=== PATIENT | male | born 2000 | race Caucasian/White ===

== ENCOUNTER 2021-01-25 19:30 | Emergency (ER) | payer MEDICAID ==
[~2021-01-25] VITALS: Ht 180.3 cm; Wt 87.7 kg
[2021-01-25] MEDS ORDERED: garlic PO (19:40)
[2021-01-25] MEDS ORDERED: MULT1TAB8 PO (19:40)
[2021-01-25] MEDS ORDERED: ISOVUE-370 76% 100ML VIAL As Ordered ONE (21:21)
[2021-01-26 00:45] VITALS: BP 119/72
--- NOTE | 2021-01-27 08:06 | ECGEPIP ---
[facility] - ED Test Date: 2021-01-25 Pat Name: KEITH WAYNE Department: Room: - Gender: Male [employer] Supervisor: DANNIE : 2000 Requested By: TARAH Wall Order Number: [id number] Reading MD: Johnna Gordon Measurements Intervals [place] Rate: 95 P: 44 ME: 144 QRS: 30 QRSD: 108 T: 37 QT: 354 QTc: 444 Interpretive Statements Normal sinus rhythm Incomplete right bundle branch block No prior Electronically Signed on 01-27-2021 8:06:36 EDT by Johnna Gordon
--- NOTE | 2021-01-28 08:43 | REP ---
INDICATION: intermittent back pain, hx of bicusp aortic valve, TAA. Repeat dictation. Preliminary report is provided at the time of the exam by rodri GEORGE. COMPARISON: None. TECHNIQUE: Contrast dose: ML of Isovue [address] technique: Helical scanning is acquired and overlapping 1.5 mm and contiguous 3 mm axial images are reformatted. In addition, maximum intensity projection and multiplanar re-formation images are generated in sagittal and coronal imaging projections. FINDINGS: There is good opacification of the mediastinal vasculature. There is aneurysmal dilation of the ascending thoracic aorta. The ascending aorta measures 5.0 cm in greatest anteroposterior dimension at the level of the right main pulmonary artery. This patient is known bicuspid aortic valve by history. The ascending aorta is to the level of the proximal arch. It measures 4.1 cm just proximal to the or origin of the innominate artery. The craniocaudal dimension of the aorta just distal to the left subclavian artery origin is 2.3 cm. Descending aorta measures 1.7 x 1.9 cm. There is no evidence of aortic dissection or Holli aneurysmal hemorrhage or fibrosis. No mural thickening is seen. There is no evidence of filling defect in the pulmonary arterial tree. The lung condon are clear. No pleural or pericardial effusion is seen. No hilar or mediastinal mass or adenopathy is observed. Normal adrenal glands are seen. The right renal artery is duplicated. Visualized upper abdominal structures are otherwise unremarkable. IMPRESSION: Ascending thoracic aortic aneurysm as above, 5.0 cm in greatest anteroposterior dimension. Known bicuspid aortic valve by history.. <Electronically signed by Ruben Meza > 01/28/21 [id number]
--- NOTE | 2021-01-28 08:48 | REP ---
INDICATION: intermittent back pain, hx of bicusp aortic valve, TAA. Repeat dictation. Preliminary report is provided at the time of the exam by rodri GEORGE. COMPARISON: None. TECHNIQUE: Helical scanning is acquired following the intravenous injection of 100 mL of Isovue 370. 3 mm axial images re-formatted. Coronal and sagittal MPR images are generated. FINDINGS: The descending thoracic aorta is normal in caliber and unremarkable. The celiac and superior mesenteric and inferior mesenteric artery origins are clear and unremarkable. The infrarenal abdominal aorta is normal in caliber. There is an accessory lower pole right renal artery. Both right renal arteries and the left renal artery are normal in caliber without evidence of stenosis. Common iliac and external iliac and internal iliac arteries are widely patent. 1 there is evidence of mild fatty infiltration of the liver. Liver and spleen are normal in size homogeneous in texture. Normal adrenal glands are seen. No abnormality is noted in the gallbladder or pancreas. No retroperitoneal mass or adenopathy is seen. A normal appendix is noted in the right lower quadrant. Urinary bladder, seminal vesicles, and prostate are unremarkable. No abdominal wall defect is seen. Small and large bowel loops are normal in the abdomen and pelvis. IMPRESSION: Mild fatty infiltration of the liver. Otherwise negative. Accessory lower pole right renal artery. No other vascular abnormality. <Electronically signed by Ruben Meza > 01/28/21 [id number]
--- NOTE | 2021-01-28 13:47 | ED PDOC ---
Post-Departure Follow-Up [facility] [place] and dr renteria faxed formal report of cta chest for fu Brina Mcdonald MD Jan 28, 2021 13:47
== END 2021-01-26 01:09 | disposition home or self-care (01) ==
LOC: M ED 19:30
DX: I71.2 Thoracic aortic aneurysm, without rupture (principal); I45.19 Other right bundle-branch block; Z87.891 Personal history of nicotine dependence
CPT/HCPCS: 36415; 71275; 74174; 80047; 93005; 99285; Q9967

== ENCOUNTER → 2021-01-28 | Outpatient (CLI) | payer MEDICAID ==
[~2021-01-28] MED LIST: MULT1TAB8 PO; garlic PO
--- NOTE | 2021-01-29 10:29 | ECHO ---
DATE OF PROCEDURE: 01/28/2021 Age: 20 Gender: Male Height: 177 cm Weight: 87 kg REFERRING PHYSICIAN: Grace Luis. DIAGNOSIS: Thoracic aortic aneurysm. INDICATION: MEASUREMENTS: IVS 1.2 cm LV 4.8 cm LVPW 1.1 cm LA 3.2 cm Aortic root 2.7 cm Ascending aorta 4.8 cm Aortic arch 4.0 cm RV 2.7 cm IVC 1.0 cm Mitral E wave velocity 154 A wave 110 E prime septal 12.5 E prime lateral 12.5 FINDINGS: This study is of good technical quality. Patient is in sinus rhythm. Left ventricle is normal size and systolic function, no segmental wall motion abnormalities are appreciated. Overall estimated LVEF 60 to 65%. Right ventricle is also normal size and systolic function. Both atria appear normal. Aortic valve appears to have partial fusion of right noncoronary cusp. So functionally this most likely represents bicuspid aortic valve even though the visualization was somewhat limited. Mobility of leaflets is preserved. Mitral, tricuspid, and pulmonic valves appear normal. Aortic root is normal, but there is dilatation of the ascending aorta that measures 4.8 cm and aortic arch measures 4.0 cm. No pericardial effusion is noted. Inferior vena cava is normal size. Abdominal aorta appears normal. Doppler interrogation of aortic valve reveals mean gradient 24 and peak gradient 38 mmHg. Calculated aortic valve area was 1.0 cm2, that is almost certainly inaccurate. I estimate not worse than mild or in worst case moderate aortic stenosis. There is approximately mild to moderate aortic insufficiency. Mitral valve is functionally competent. There is trace tricuspid insufficiency and trace pulmonic insufficiency. Calculated pulmonary artery pressure is within normal limits. There appears to be mildly increased gradient across descending aorta, but the quality of the tracing was poor, but I cannot completely rule out possibility of minor coarctation. Mitral inflow pattern and tissue Doppler imaging of mitral annulus revealed normal diastolic function. CONCLUSIONS: 1. Study is of good technical quality, patient is in sinus rhythm. 2. Normal LV size with borderline LVH and preserved systolic and diastolic function. 3. Normal RV size and function. 4. Likely functionally bicuspid aortic valve with partial fusion of noncoronary and right coronary cusp. Functionally mild or possibly mild to moderate aortic stenosis (mean gradient 24 mmHg) and mild to moderate insufficiency. 5. Dilated ascending aorta (4.8 cm) and aortic arch (4.0 cm). 6. Cannot completely rule out presence of mild coarctation. 7. Normal central venous pressure and normal pulmonary artery pressure. COMMENT: If not already performed, I recommend CT or CT angiography of the chest in order to properly visualize the whole thoracic aorta. For patients with bicuspid aortic valve, the typical threshold for repair is 5.0 cm so our measurements come close. If patient by any chance has a history of collagen disease (Marfan syndrome, etc), then aortic valve replacement and ascending aortic thoracic repair or replacement are already indicated. MTDD
== END ==
LOC: M CARPUL 11:30 → M LAB 11:30
PROVIDERS: ATTEND Pediatrics
DX: I71.2 Thoracic aortic aneurysm, without rupture (principal)

== ENCOUNTER → 2022-10-29 | Outpatient (CLI) | payer OTHER ==
[~2022-10-29] MED LIST changes: +ISOVUE-370 76% 100ML VIAL As Ordered ONE
== END ==
LOC: M RAD 15:02
PROVIDERS: ATTEND Internal Medicine Cardiovascular Disease
DX: I71.21 Aneurysm of the ascending aorta, without rupture (principal); Z98.890 Other specified postprocedural states

== ENCOUNTER 2023-07-23 10:14 | Day surgery (SDC) | payer OTHER ==
[~2023-07-23] VITALS: Ht 180.3 cm; Wt 88.9 kg
[~2023-07-23 10:14] MED LIST changes: -ISOVUE-370 76% 100ML VIAL As Ordered ONE
[2023-07-23] MEDS ORDERED: LIDOCAINE 1% SDV 5ML VIAL SC PRN (12:00)
[2023-07-23] MEDS ORDERED: METO1TAB87 PO (12:23)
[2023-07-23] MEDS ORDERED: LIDOCAINE 3.5 % 1ML OPHTH TOPICAL GEL OU ONE (12:25)
[2023-07-23] MEDS ORDERED: mitoMYcin 0.2 MG/VIAL KIT FOR OPHTHALMIC USE As Ordered ONE (12:38)
[2023-07-23] MEDS ORDERED: POVIDONE-IODINE 5% OPHTH PREP SOL 30ML As Ordered ONE (12:39)
[2023-07-23] MEDS ORDERED: TOBRADEX OPHTH OINT 3.5 GM As Ordered ONE (12:39)
[2023-07-23] MEDS ORDERED: LIDOCAINE 2% W/EPINEPHRINE 20ML VIAL **PRES FREE As Ordered ONE (12:39)
[2023-07-23] MEDS ORDERED: MIDAZOLAM INJ 2MG/2ML VIAL As Ordered ONE (12:58)
[2023-07-23] MEDS ORDERED: fentaNYL 100 MCG/2 ML INJECTION As Ordered ONE (12:58)
[2023-07-23 13:57] VITALS: BP 116/63; TEMP 97.5; O2SAT 99
== END 2023-07-23 14:14 | disposition home or self-care (01) ==
LOC: M SDC 10:14
PROVIDERS: ATTEND Ophthalmology
DX: H40.812 Glaucoma with increased episcleral venous pressure, left eye (principal); Z79.899 Other long term (current) drug therapy; F17.200 Nicotine dependence, unspecified, uncomplicated
CPT/HCPCS: 66183; C1783; J2250; J3010; J7315